=== PATIENT | female | born 1960 | race Two or more races ===

== ENCOUNTER 2018-05-18 07:05 | Day surgery (SDC) | payer OTHER ==
[~2018-05-18 07:05] MED LIST: ACTOS15 MG PO; ADVAIR HFA 230/12 GM IH; CAPOTEN100 MG PO; CARVEDILOL12.5 MG PO; CYMBALTA60 MG PO; FIORICET PO; FORTAMET1000 MG PO; GLIPIZIDE XL2.5 MG PO; LASIX40 MG PO; NEURONTIN800 MG PO; NIFE60TA3 PO; PRILOSEC OTC20 MG PO; SINGULAIR10 MG PO; VENTOLIN HFA18 GM IH; XARELTO20 MG PO; ZANTAC300 MG PO; ZETIA10 MG PO; ZOCOR40 MG PO; [UNRECOGNIZED DRUG - OTHER] PO
[2018-05-18] MEDS ORDERED: ULTRACET PO (13:03)
[2018-05-18] MEDS ORDERED: KEFLEX500 MG PO (13:03)
== END 2018-05-18 16:50 | disposition home or self-care (01) ==
LOC: CIR.AMB 07:05
DX: N39.41 Urge incontinence (principal); N32.81 Overactive bladder
CPT/HCPCS: 64581; 64590; C1767; C1778